=== PATIENT | male | born 1965 | race African-American/Black ===

== ENCOUNTER 2017-03-23 23:04 | Emergency (ER) | payer SELFPAY ==
[~2017-03-23] VITALS: Ht 182.9 cm; Wt 82.0 kg
[2017-03-23] MEDS ORDERED: TETANUS, DIPHTHERIA, PERTUSSIS VAC/PF 0.5ML (>7YR OLD) IM ONE (23:45)
[2017-03-23 23:54] LABS: BASOPHILS % 0.5 % (0.0-2.0); EOSINOPHILS % 2.1 % (0.0-5.0); HEMOGLOBIN. 14.6 g/dL (14.0-18.0); LYMPHOCYTES % 17.5 % (20.0-50.0); MEAN CORPUSCULAR HEMOGLOBIN 29.2 pg (28.0-32.0); MEAN CORPUSCULAR HGB CONC 33.3 g/dL (31.0-37.0); MEAN CORPUSCULAR VOLUME 87.6 fL (80.0-94.0); MONOCYTES % 6.7 % (2.0-8.0); NEUTROPHILS % 73.2 % (40.0-76.0); PLATELET 200 x1000/uL (130-400); RED BLOOD CELL COUNT 5.02 mill/uL (4.7-6.1); RED CELL DISTRIBUTION WIDTH 12.7 % (11.6-14.6)
[2017-03-23 23:59] LABS: CHLORIDE 106 mEq/L (98-107); INDEX HEMOLYSI 1 (1-3); INDEX ICTERIC 1 (1-4); INDEX LIPEMIC 1 (1-3)
[2017-03-24 00:07] LABS: ALANINE AMINOTRANSFERASE 20 IU/L (13-61); ALBUMIN 3.2 g/dL (3.4-5.0); ANION GAP 16; CALCIUM 8.6 mg/dL (8.5-10.1); CARBON DIOXIDE 25 mEq/L (21-32); ETHANOL BLOOD < 10 mg/dL; UREA NITROGEN BLOOD 21 mg/dL (7-21); eGFR > 60 mL/min (>60)
[2017-03-24] MEDS ORDERED: LIDOCAINE HCL/EPINEPHRINE 1%-EPI 1:100,000 20 ML VIAL MC ONE (03:45)
[2017-03-24] MEDS ORDERED: LIDOCAINE HCL 1% 20ML VIAL (Pyxis) INJ MC ONE (03:45)
[2017-03-24] MEDS ORDERED: BACITRACIN ZINC OINT UDPKT TOP ONE (03:45)
[2017-03-24 06:35] VITALS: BP 158/88
== END 2017-03-24 06:36 | disposition home or self-care (01) ==
LOC: ER 23:21
DX: S61.412A Laceration without foreign body of left hand, initial encounter (principal); S09.90XA Unspecified injury of head, initial encounter; N28.9 Disorder of kidney and ureter, unspecified; I10 Essential (primary) hypertension; R51 Headache; Z87.01 Personal history of pneumonia (recurrent); Y08.89XA Assault by other specified means, initial encounter; Y93.89 Activity, other specified; Y92.89 Other specified places as the place of occurrence of the external cause; Y99.8 Other external cause status
CPT/HCPCS: 12002; 36415; 70450; 72125; 80053; 85025; 99285; A4217; G0482; J3490; X7700; Z7610

== ENCOUNTER 2018-09-13 03:16 | Inpatient (IN) | payer MEDICAID ==
[~2018-09-13] VITALS: Ht 185.4 cm; Wt 83.9 kg
[2018-09-13] MEDS ORDERED: HYDROCODONE/ACETAMINOPHEN 5/325MG TABLET PO STA (07:15)
[2018-09-13 09:18] LABS: BASOPHILS % 0.8 % (0.0-2.0); EOSINOPHILS % 0.4 % (0.0-5.0); HEMATOCRIT. 46.2 % (42.0-52.0); HEMOGLOBIN. 15.5 g/dL (14.0-18.0); LYMPHOCYTES % 10.4 % (20.0-50.0); MEAN CORPUSCULAR HEMOGLOBIN 29.8 pg (28.0-32.0); MEAN CORPUSCULAR VOLUME 88.7 fL (80.0-94.0); MEAN PLATELET VOLUME 8.9 fl (7.4-10.4); MONOCYTES % 5.6 % (2.0-8.0); NEUTROPHILS % 82.8 % (40.0-76.0); PLATELET 199 x1000/uL (130-400); RED BLOOD CELL COUNT 5.21 mill/uL (4.7-6.1)
[2018-09-13 09:27] LABS: CHLORIDE 98 mEq/L (98-107)
[2018-09-13] MEDS ORDERED: CEFTRIAXONE 1 G PREMIX 50 ML IV ONE (11:45)
[2018-09-13] MEDS ORDERED: AZITHROMYCIN 500 MG in DEXT 5% WATER 250 ML IV ONE (11:45)
[2018-09-13 14:50] VITALS: BP 151/81
[2018-09-13 15:00] VITALS: BP 151/81
[2018-09-13] MEDS ORDERED: IPRATROPIUM/ALBUTEROL 0.5-3(2.5)MG/3ML NEB HHN PRN (15:30)
[2018-09-13] MEDS ORDERED: TRAMADOL 50MG TABLET PO PRN (15:30)
[2018-09-13 16:00] VITALS: BP 151/81
[2018-09-13] MEDS ORDERED: DEXTROSE 50% WATER 50ML SYRINGE IV PRN (17:00)
[2018-09-13] MEDS ORDERED: ACETAMINOPHEN 650MG/20.3ML UDC GT PRN (17:00)
[2018-09-13] MEDS ORDERED: CLONIDINE 0.1MG TABLET PO PRN (17:00)
[2018-09-13] MEDS ORDERED: AZITHROMYCIN 500 MG in DEXT 5% WATER 250 ML IV SCH (17:00)
[2018-09-13] MEDS ORDERED: ACETAMINOPHEN 650MG SUPP PR PRN (17:00)
[2018-09-13] MEDS ORDERED: HYDROCODONE/ACETAMINOPHEN 5/325MG TABLET PO PRN (17:00)
[2018-09-13] MEDS ORDERED: CEFTRIAXONE 1 G PREMIX 50 ML IV SCH (17:00)
[2018-09-13] MEDS ORDERED: GUAIFENESIN 200MG/10ML SUGAR FREE UDC PO PRN (17:00)
[2018-09-13] MEDS ORDERED: DIPHENHYDRAMINE 50MG/ML VIAL IV PRN (17:00)
[2018-09-13] MEDS ORDERED: NA PHOS,M-B/NA PHOS,DI-BA ENEMA 118ML PR PRN (17:00)
[2018-09-13] MEDS ORDERED: IPRATROPIUM/ALBUTEROL 0.5-3(2.5)MG/3ML NEB INH PRN (17:00)
[2018-09-13] MEDS ORDERED: ONDANSETRON HCL 4MG/2ML INJ IV PRN (17:00)
[2018-09-13] MEDS ORDERED: MAGNESIUM/ALUMINUM HYDROXIDE/SIMETHICONE 30ML UDC PO PRN (17:00)
[2018-09-13] MEDS ORDERED: ACETAMINOPHEN 325MG TABLET PO PRN (17:00)
[2018-09-13] MEDS ORDERED: DOCUSATE SODIUM 100MG CAPSULE PO PRN (17:00)
[2018-09-13] MEDS: ENOXAPARIN 40MG/0.4ML SYR SUBCUT SCH (17:15)
[2018-09-13] MEDS: AMLODIPINE 5MG TABLET PO SCH (17:48)
[2018-09-13] MEDS: BLOOD SUGAR DIAGNOSTIC STRIP TEST SCH ×2 (17:49→21:03)
[2018-09-13] MEDS: NICOTINE 14MG PATCH TD SCH (17:49)
[2018-09-13] MEDS: INSULIN LISPRO 100 UNITS/ML SUBCUT SCH ×2 (17:58→21:00)
[2018-09-13] MEDS ORDERED: IPRATROPIUM/ALBUTEROL 0.5-3(2.5)MG/3ML NEB HHN SCH (18:00)
[2018-09-13 20:00] VITALS: BP 137/84
[2018-09-13] MEDS: IPRATROPIUM/ALBUTEROL 0.5-3(2.5)MG/3ML NEB INH SCH (20:23)
[2018-09-13] MEDS: GUAIFENESIN 600MG ER TABLET PO SCH (21:09)
[2018-09-13] MEDS ORDERED: IOHEXOL-350 100 ML BOTTLE ONE (21:50)
[2018-09-14] VITALS: BP 122/73
[2018-09-14] MEDS: SODIUM CHLORIDE 0.9% INJ 3ML FLUSH IVF SCH ×4 (00:59→22:16)
[2018-09-14] MEDS: IPRATROPIUM/ALBUTEROL 0.5-3(2.5)MG/3ML NEB INH SCH ×4 (01:47→20:09)
[2018-09-14 04:00] VITALS: BP 138/87
[2018-09-14] MEDS: BLOOD SUGAR DIAGNOSTIC STRIP TEST SCH ×4 (06:56→21:00)
[2018-09-14 07:16] LABS: BASOPHILS % 0.6 % (0.0-2.0); EOSINOPHILS % 1.7 % (0.0-5.0); HEMATOCRIT. 42.1 % (42.0-52.0); HEMOGLOBIN. 14.2 g/dL (14.0-18.0); LYMPHOCYTES % 19.7 % (20.0-50.0); MEAN CORPUSCULAR HEMOGLOBIN 29.5 pg (28.0-32.0); MEAN CORPUSCULAR VOLUME 87.6 fL (80.0-94.0); MEAN PLATELET VOLUME 8.5 fl (7.4-10.4); MONOCYTES % 9.2 % (2.0-8.0); NEUTROPHILS % 68.8 % (40.0-76.0); PLATELET 207 x1000/uL (130-400); RED BLOOD CELL COUNT 4.81 mill/uL (4.7-6.1); RED CELL DISTRIBUTION WIDTH 12.6 % (11.6-14.6)
[2018-09-14 07:50] LABS: CHLORIDE 100 mEq/L (98-107)
[2018-09-14] MEDS: INSULIN LISPRO 100 UNITS/ML SUBCUT SCH ×4 (07:50→21:00)
[2018-09-14 07:59] LABS: HDL CHOLESTEROL 58 mg/dL (40-59); LDL CHOLESTEROL 54 mg/dL (5-100)
[2018-09-14 08:00] VITALS: BP 116/71
[2018-09-14] MEDS: NICOTINE 14MG PATCH TD SCH (09:00)
[2018-09-14] MEDS: GUAIFENESIN 600MG ER TABLET PO SCH ×2 (09:03→22:16)
[2018-09-14] MEDS: AMLODIPINE 5MG TABLET PO SCH (09:03)
[2018-09-14] MEDS: AZITHROMYCIN 500 MG in DEXT 5% WATER 250 ML IV SCH (11:18)
[2018-09-14 12:00] VITALS: BP 129/83
[2018-09-14] MEDS: CEFTRIAXONE 1 G PREMIX 50 ML IV SCH (16:25)
[2018-09-14] MEDS: ENOXAPARIN 40MG/0.4ML SYR SUBCUT SCH (17:54)
[2018-09-14 20:00] VITALS: BP 122/75
[2018-09-15] VITALS: BP 122/74
[2018-09-15] MEDS: IPRATROPIUM/ALBUTEROL 0.5-3(2.5)MG/3ML NEB INH SCH ×3 (02:03→14:20)
[2018-09-15 03:10] LABS: CLARITY URINE CLEAR (CLEAR); COLOR URINE YELLOW (YELLOW); KETONES URINE NEGATIVE (NEGATIVE); LEUKOCYTE ESTERASE URINE NEGATIVE (NEGATIVE); NITRITE URINE NEGATIVE (NEGATIVE); OCCULT BLOOD URINE NEGATIVE (NEGATIVE); PROTEIN URINE NEGATIVE (NEGATIVE); SPECIFIC GRAVITY URINE 1.013 (1.005-1.030); UROBILINOGEN URINE 0.2 E.U./dL (0.2-1.0)
[2018-09-15 03:25] LABS: *BENZODIAZEPINES SCREEN URINE NEGATIVE (NEGATIVE); *COCAINE SCREEN URINE PRESUMTIVE POSITIVE (NEGATIVE); METHADONE URINE SCREEN NEGATIVE (NEGATIVE); OPIATES URINE SCREEN NEGATIVE (NEGATIVE)
[2018-09-15 03:26] LABS: *AMPHETAMINES SCREEN URINE NEGATIVE (NEGATIVE); *BARBITURATES SCREEN URINE NEGATIVE (NEGATIVE); CANNABINOID URINE SCREEN PRESUMTIVE POSITIVE (NEGATIVE); PHENCYCLIDINE URINE SCREEN NEGATIVE (NEGATIVE)
[2018-09-15 04:00] VITALS: BP 126/82
[2018-09-15] MEDS: SODIUM CHLORIDE 0.9% INJ 3ML FLUSH IVF SCH ×2 (05:54→13:56)
[2018-09-15] MEDS: BLOOD SUGAR DIAGNOSTIC STRIP TEST SCH ×3 (05:54→16:27)
[2018-09-15] MEDS: INSULIN LISPRO 100 UNITS/ML SUBCUT SCH ×3 (07:50→16:54)
[2018-09-15 08:00] VITALS: BP 137/80
[2018-09-15] MEDS ORDERED: KETOROLAC 30MG/ML VIAL IV SCH (08:00)
[2018-09-15] MEDS: GUAIFENESIN 600MG ER TABLET PO SCH (08:44)
[2018-09-15] MEDS: AMLODIPINE 5MG TABLET PO SCH (08:45)
[2018-09-15] MEDS: NICOTINE 14MG PATCH TD SCH (08:47)
[2018-09-15] MEDS: AZITHROMYCIN 500 MG in DEXT 5% WATER 250 ML IV SCH (11:40)
[2018-09-15] MEDS ORDERED: AZIT500T3 MT (11:54)
[2018-09-15 13:11] LABS: BASOPHILS % 0.7 % (0.0-2.0); EOSINOPHILS % 2.7 % (0.0-5.0); HEMATOCRIT. 43.6 % (42.0-52.0); HEMOGLOBIN. 14.7 g/dL (14.0-18.0); LYMPHOCYTES % 20.3 % (20.0-50.0); MEAN CORPUSCULAR HEMOGLOBIN 29.9 pg (28.0-32.0); MEAN CORPUSCULAR VOLUME 88.8 fL (80.0-94.0); MEAN PLATELET VOLUME 8.1 fl (7.4-10.4); MONOCYTES % 8.8 % (2.0-8.0); NEUTROPHILS % 67.5 % (40.0-76.0); PLATELET 247 x1000/uL (130-400); RED BLOOD CELL COUNT 4.91 mill/uL (4.7-6.1); RED CELL DISTRIBUTION WIDTH 12.8 % (11.6-14.6)
[2018-09-15 13:44] LABS: CHLORIDE 101 mEq/L (98-107)
[2018-09-15] MEDS: CEFTRIAXONE 1 G PREMIX 50 ML IV SCH (13:45)
[2018-09-15] MEDS: ENOXAPARIN 40MG/0.4ML SYR SUBCUT SCH (16:24)
[2018-09-15 18:40] VITALS: BP 135/77
== END 2018-09-15 19:10 | disposition home or self-care (01) | DRG 720 ==
LOC: ER 03:22 → 6EST 11:44 → ENRESERV 12:13
PROVIDERS: ADMIT Family Medicine; ATTEND Family Medicine
DX: A41.9 Sepsis, unspecified organism (principal); J96.00 Acute respiratory failure, unspecified whether with hypoxia or hypercapnia; J84.9 Interstitial pulmonary disease, unspecified; J68.0 Bronchitis and pneumonitis due to chemicals, gases, fumes and vapors; E44.1 Mild protein-calorie malnutrition; E11.9 Type 2 diabetes mellitus without complications; E87.1 Hypo-osmolality and hyponatremia; I10 Essential (primary) hypertension; G40.909 Epilepsy, unspecified, not intractable, without status epilepticus; F12.90 Cannabis use, unspecified, uncomplicated; R91.1 Solitary pulmonary nodule; F14.90 Cocaine use, unspecified, uncomplicated; F17.200 Nicotine dependence, unspecified, uncomplicated; T59.91XA Toxic effect of unspecified gases, fumes and vapors, accidental (unintentional), initial encounter; Y92.89 Other specified places as the place of occurrence of the external cause; Z59.0 Homelessness; Z91.14 Patient's other noncompliance with medication regimen; Z68.24 Body mass index [BMI] 24.0-24.9, adult
CPT/HCPCS: 36415; 71045; 71275; 80061; 80305; 82962; 84484; 85379; 87804; 93005; 94640; 96365; 96366; 96368; 97162; 99285; J0456; J0696; J1650; J1815; J1885; J7060; J7620; Q9967

== ENCOUNTER 2021-04-23 23:49 | Emergency (ER) | payer MEDICAID ==
[~2021-04-23] VITALS: Ht 185.4 cm; Wt 84.0 kg
[~2021-04-23 23:49] MED LIST: ALBU6.7H9 ORI; FLUT1DIS3 INH; P20 MT
[2021-04-24] MEDS ORDERED: PREDNISONE 20MG TABLET PO STA (00:04)
[2021-04-24] MEDS ORDERED: ALBUTEROL (0.083%) 2.5MG/3ML NEB HHN STA (00:04)
[2021-04-24] MEDS ORDERED: IPRATROPIUM BROMIDE (0.02%) 0.5MG/2.5ML NEB HHN STA (00:04)
[2021-04-24 00:21] LABS: HEMATOCRIT. 42.3 % (42.0-52.0); HEMOGLOBIN. 14.1 g/dL (14.0-18.0); MEAN CORPUSCULAR HEMOGLOBIN 28.9 pg (28.0-32.0); MEAN CORPUSCULAR VOLUME 86.8 fL (80.0-94.0); MEAN PLATELET VOLUME 7.4 fl (7.4-10.4); PLATELET 361 x1000/uL (130-400); RED BLOOD CELL COUNT 4.87 mill/uL (4.7-6.1); RED CELL DISTRIBUTION WIDTH 13.3 % (11.6-14.6)
[2021-04-24 00:28] LABS: CHLORIDE 102 mEq/L (98-107)
[2021-04-24 00:32] LABS: ETHANOL BLOOD < 10 mg/dL
[2021-04-24 01:42] LABS: PLATELET ESTIMATE NORMAL
[2021-04-24] MEDS ORDERED: PRED10TA23 MT (03:40)
[2021-04-24] MEDS ORDERED: ALBU6.7H9 INH (03:40)
[2021-04-24 03:50] VITALS: BP 138/85
== END 2021-04-24 04:15 | disposition home or self-care (01) ==
LOC: ER 23:49
DX: J44.1 Chronic obstructive pulmonary disease with (acute) exacerbation (principal); F14.10 Cocaine abuse, uncomplicated; Q24.9 Congenital malformation of heart, unspecified; Z79.899 Other long term (current) drug therapy
CPT/HCPCS: 36415; 71045; 80053; 80320; 83605; 83880; 84484; 85025; 93005; 94640; 99285; J7512; Z7610; G0480

== ENCOUNTER 2022-06-18 16:40 | Emergency (ER) | payer MEDICAID ==
[~2022-06-18] VITALS: Ht 185.4 cm; Wt 82.0 kg
[~2022-06-18 16:40] MED LIST changes: +ALBU6.7H9 INH; +PRED10TA23 MT
[2022-06-18 16:42] VITALS: BP 155/96
[2022-06-18] MEDS ORDERED: ASPIRIN 81MG TABLET PO ONE (21:45)
[2022-06-18 22:05] LABS: BASOPHILS % 0.5 % (0.0-2.0); EOSINOPHILS % 3.3 % (0.0-5.0); HEMATOCRIT. 41.8 % (42.0-52.0); HEMOGLOBIN. 13.9 g/dL (14.0-18.0); LYMPHOCYTES % 29.2 % (20.0-50.0); MEAN CORPUSCULAR HEMOGLOBIN 29.3 pg (28.0-32.0); MEAN PLATELET VOLUME 8.1 fl (7.4-10.4); MONOCYTES % 8.1 % (2.0-8.0); NEUTROPHILS % 58.9 % (40.0-76.0); PLATELET 204 x1000/uL (130-400); RED BLOOD CELL COUNT 4.75 mill/uL (4.7-6.1); RED CELL DISTRIBUTION WIDTH 14.1 % (11.6-14.6)
[2022-06-18 22:13] LABS: CHLORIDE 103 mEq/L (98-107)
== END 2022-06-19 00:15 | disposition home or self-care (01) ==
LOC: ER 16:40
DX: R07.89 Other chest pain (principal); J44.9 Chronic obstructive pulmonary disease, unspecified; F14.10 Cocaine abuse, uncomplicated; Z79.899 Other long term (current) drug therapy
CPT/HCPCS: 36415; 71045; 80053; 83880; 84484; 85025; 93005; 99285; Z7610

== ENCOUNTER 2023-11-17 21:36 | Emergency (ER) | payer MEDICAID ==
[~2023-11-17] VITALS: Ht 185.4 cm; Wt 75.0 kg
[~2023-11-17 21:36] MED LIST changes: +ALBU6.7H3 INH; +ALBU6.7H3 ORI; -ALBU6.7H9 INH; -ALBU6.7H9 ORI; +CIPR500T5 MT
[2023-11-17 21:42] VITALS: BP 183/117; PULSE 71; RESP 18
[2023-11-18] MEDS ORDERED: ONDANSETRON 4MG ODT PO ONE (01:00)
== END 2023-11-18 04:10 | disposition home or self-care (01) ==
LOC: ER 21:36
DX: T50.7X1A Poisoning by analeptics and opioid receptor antagonists, accidental (unintentional), initial encounter (principal); J44.9 Chronic obstructive pulmonary disease, unspecified; E11.9 Type 2 diabetes mellitus without complications; Y92.89 Other specified places as the place of occurrence of the external cause
CPT/HCPCS: 99283; Q0162

== ENCOUNTER 2024-09-11 02:18 | Emergency (ER) | payer MEDICAID ==
[~2024-09-11] VITALS: Ht 182.9 cm; Wt 77.0 kg
[2024-09-11 02:28] VITALS: O2SAT 100
[2024-09-11] MEDS: BACITRACIN 14GM TUBE TOP ONE (02:45)
[2024-09-11] MEDS: ACETAMINOPHEN 325MG TABLET PO ONE (02:45)
[2024-09-11] MEDS: TETANUS, DIPHTHERIA, PERTUSSIS VAC/PF 0.5ML (>10YR OLD) IM ONE (02:45)
[2024-09-11] MEDS ORDERED: ACET-2708 MT (03:59)
[2024-09-11] MEDS: MORPHINE SULFATE 4 MG/ML INJ (FOR IV/IM USE) IM ONE (04:48)
[2024-09-11 08:40] VITALS: BP 152/97; PULSE 59; RESP 16; TEMP 36.66960; O2SAT 100
== END 2024-09-11 08:41 | disposition home or self-care (01) ==
LOC: ER 02:20
DX: S40.022A Contusion of left upper arm, initial encounter (principal); S40.021A Contusion of right upper arm, initial encounter; S80.12XA Contusion of left lower leg, initial encounter; S80.11XA Contusion of right lower leg, initial encounter; M25.571 Pain in right ankle and joints of right foot; E11.9 Type 2 diabetes mellitus without complications; I50.9 Heart failure, unspecified; J44.9 Chronic obstructive pulmonary disease, unspecified; F19.90 Other psychoactive substance use, unspecified, uncomplicated; Z79.899 Other long term (current) drug therapy; Y08.89XA Assault by other specified means, initial encounter; Y93.89 Activity, other specified; Y92.89 Other specified places as the place of occurrence of the external cause; Y99.8 Other external cause status
CPT/HCPCS: 99284; 73080; 73590; 73600; 90715; 96372; J2270